=== PATIENT | male | born 1945 | race Caucasian/White ===

== ENCOUNTER → 2017-05-14 | Outpatient (CLI) | payer MEDICARE ==
[~2017-05-14] MED LIST: ALBUAER19; ASPEC81 PO; CIPR-255 PO; EPP3/2 SQ; GLIP-197 PO; LATA0.009 OPB; MECL25TA2 PO; METF1000 PO; METO25TA3 PO; MRLP17 PO; PRLSR20 PO; SIMV10TA2 PO; TRIATAB3 PO
--- NOTE | 2017-05-14 10:28 | DIAGNOSTIC IMAGING REPORT ---
[facility] CLINICAL HISTORY: Nephrolithiasis. Bladder cancer. FINDINGS: 2 AP abdominal radiographs are compared to study dated 11/21/2015 and correlated with abdominal CT dated 04/25/2015. There is unchanged appearance of a 5 mm nonobstructing calculus in the lower pole of the left kidney. No additional calcifications are seen in either kidney or along the course of the ureters. There is a nonobstructed abdominal bowel gas pattern. Coarse calcifications are noted in the prostate gland and there are pelvic phleboliths. The skeletal structures are osteopenic. There is moderate lumbosacral spondylosis and mild scoliosis. The bony pelvis is intact as visualized. IMPRESSION: 1. Unchanged appearance of a nonobstructing calculus in the lower pole of the left kidney. 2. No additional calcifications are seen in either kidney or along the course of the ureters on today's examination. 3. Additional changes as above. Electronically signed by: Mike Avitia M.D. 05/14/2017 10:26 AM Dictated Date/Time: 05/14/2017 10:25 AM
== END | disposition home or self-care (01) ==
LOC: C.RAD 09:57
PROVIDERS: ATTEND Urology
DX: C67.9 Malignant neoplasm of bladder, unspecified (principal); N20.0 Calculus of kidney